=== PATIENT | male | born 1960 | race Two or more races ===

== ENCOUNTER → 2018-11-22 | Outpatient (CLI) | payer OTHER ==
[~2018-11-22] VITALS: Ht 167.6 cm; Wt 90.0 kg
[~2018-11-22] MED LIST: ASPI-1182 PO; ATOR40TA28 PO; BACTDSB PO; INSLAN SQ; LIDOCAINE 2% 5 ML JELLY TP ONE; LISI2.5T2 PO; METF-960 PO; METO-558 PO
[2018-11-22 09:30] VITALS: BP 130/69
== END | disposition home or self-care (01) ==
LOC: HBOWC 09:04
PROVIDERS: ATTEND Podiatrist
DX: E11.621 Type 2 diabetes mellitus with foot ulcer (principal); L97.522 Non-pressure chronic ulcer of other part of left foot with fat layer exposed
CPT/HCPCS: 11042; G0463